=== PATIENT | female | born 1960 | race Caucasian/White ===

== ENCOUNTER 2017-05-15 08:04 | Emergency (ER) | payer BC | END 2017-05-15 08:24 | disposition home or self-care (01) | LOC: ER 08:04 | DX: K08.89 Other specified disorders of teeth and supporting structures (principal); Z88.8 Allergy status to other drugs, medicaments and biological substances ==

== ENCOUNTER 2017-05-15 20:16 | Emergency (ER) | payer BC | END 2017-05-15 22:41 | disposition home or self-care (01) | LOC: ER 20:16 | DX: K08.89 Other specified disorders of teeth and supporting structures (principal); I10 Essential (primary) hypertension; Z88.8 Allergy status to other drugs, medicaments and biological substances | CPT/HCPCS: 96372; J2550 ==